=== PATIENT | male | born 1995 | race African-American/Black ===

== ENCOUNTER → 2023-06-08 16:47 | Outpatient (CLI) | payer OTHER, SELFPAY ==
[2023-06-08 19:56] LABS: Semen Viscosity Stringy (Normal); Volume,Semen 1.5 ml (2.0-5.0)
[2023-06-08 19:57] LABS: PH,Semen 8.5 (7.3-8.3); Sperm Count 104 mil/mm3 (20-160); WBCs,Semen Trace
[2023-06-08 19:58] LABS: 3Hr Motility Quality Good Progression (Mod-Rapid); 3Hr Sperm Motility 50 % (50-60); Motility Quality Good Progression (Mod-Rapid); Sperm Morphology Normal (Normal); Sperm Motility 70 % (50-90)
== END ==
PROVIDERS: Visit Provider Obstetrics & Gynecology
DX: Z31.41 Encounter for fertility testing (principal)
CPT/HCPCS: 89320